=== PATIENT | male | born 1950 | race Caucasian/White ===

== ENCOUNTER 2017-04-08 07:25 | Day surgery (SDC) | payer MEDICARE, BC ==
[2017-04-08] MEDS ORDERED: PROPOFOL 10 MG/ML VIAL IV ONE (09:57)
[2017-04-08] MEDS ORDERED: LIDOCAINE 2% MDV (20MG/ML) 20ML VIAL IV ONE (09:57)
[2017-04-08] MEDS ORDERED: FENTANYL PF 100MCG/2ML VIAL IV ONE (09:57)
--- NOTE | 2017-04-09 12:51 | Operative Note ---
DATE OF SURGERY: 04/08/2017 OPERATION: ESOPHAGOGASTRODUODENOSCOPY with biopsy. PREOPERATIVE DIAGNOSIS: History of short-segment Wan's. POSTOPERATIVE DIAGNOSIS: History of short-segment Wan's. ESTIMATED BLOOD LOSS: Minimal. SPECIMENS: GE junction. COMPLICATIONS: None apparent. PROCEDURE: After informed consent was obtained from the patient, he was placed in the left lateral decubitus position in the endoscopy suite, sedated and monitored by the department of anesthesia. A well-lubricated [id number] gastroscope was placed in the posterior oropharynx and under direct visualization passed to the proximal esophagus. The endoscope was advanced through the proximal, mid, and distal esophagus. The GE junction was irregular. No ulcers, erosions, strictures, varices, or mass lesions were seen. The remainder of the esophagus, gastric body, antrum, pylorus, duodenal bulb and sweep were unremarkable. J-turn views of the proximal stomach were unremarkable. The endoscope was straightened. GE junction biopsies were obtained. The endoscope was removed from the patient with no new findings noted. RECOMMENDATIONS: I would suggest the patient resume his medications and diet. He will likely require repeat upper endoscopy in 3 years pending tissue histology. As always, thank you for allowing me to participate in the healthcare of your patients. CC: Gayatri RAMÍREZ
== END 2017-04-08 09:10 | disposition home or self-care (01) ==
LOC: HOP 07:25
PROVIDERS: ATTEND Internal Medicine Gastroenterology
DX: K22.70 Barrett's esophagus without dysplasia (principal); K20.8 Other esophagitis
CPT/HCPCS: 88305; 88313; 43239; 00740; J3010

== ENCOUNTER 2019-05-04 10:35 | Day surgery (SDC) | payer MEDICARE, BC ==
[2019-05-04] MEDS ORDERED: LIDOCAINE 2% MDV (20MG/ML) 20ML VIAL IV ONE (10:36)
[2019-05-04] MEDS ORDERED: PROPOFOL 10 MG/ML VIAL IV ONE (10:36)
--- NOTE | 2019-05-05 07:12 | Operative Note ---
OPERATION: COLONOSCOPY with cold forceps polypectomy and cold snare polypectomy. PREOPERATIVE DIAGNOSIS: Personal history of colon polyps. POSTOPERATIVE DIAGNOSIS: Colon polyps and sigmoid diverticulosis. PROCEDURE: After informed consent was obtained from the patient, he was placed in the left lateral decubitus position in the endoscopy suite, sedated and monitored by the department of anesthesia. Digital rectal exam was unremarkable. A well-lubricated [id number] colonoscope was inserted into the rectum and advanced to the cecum. Preparation quality was good to excellent. The cecum revealed a diminutive polyp removed with a cold forceps. The remainder of the cecum, cecal bulb, ileocecal valve, and appendiceal orifice were unremarkable. The ascending colon revealed a very sessile 5 mm polyp removed with a cold snare with minimal bleeding noted. The remainder of the ascending colon, transverse colon, and descending colon were unrevealing. The sigmoid colon demonstrated [id number] diverticular changes. No polyps or inflammation was seen. The rectum was unremarkable in forward and J-turn views. The endoscope was straightened, the rectal ampulla deflated, and the endoscope was removed. RECOMMENDATIONS: I would suggest the patient follow a high-fiber diet. He will require repeat exam in 3-5 years pending tissue histology. As always, thank you for allowing me to participate in the healthcare of your patients. JENNA
== END 2019-05-04 11:56 | disposition home or self-care (01) ==
LOC: HOP 10:35
PROVIDERS: ATTEND Internal Medicine Gastroenterology
DX: Z12.11 Encounter for screening for malignant neoplasm of colon (principal); Z86.010 Personal history of colon polyps; D12.2 Benign neoplasm of ascending colon; D12.0 Benign neoplasm of cecum; K57.30 Diverticulosis of large intestine without perforation or abscess without bleeding; K21.9 Gastro-esophageal reflux disease without esophagitis